=== PATIENT | male | born 1990 | race Hispanic/Latino ===

== ENCOUNTER 2019-04-24 12:26 | Emergency (ER) | payer OTHER ==
[~2019-04-24] VITALS: Ht 182.9 cm; Wt 98.0 kg
[2019-04-24 14:35] VITALS: BP 121/74
== END 2019-04-24 14:35 | disposition home or self-care (01) | DRG 605 ==
LOC: ED 12:26
DX: S60.022A Contusion of left index finger without damage to nail, initial encounter (principal); W22.8XXA Striking against or struck by other objects, initial encounter; Y93.89 Activity, other specified; Y92.89 Other specified places as the place of occurrence of the external cause; Y99.0 Civilian activity done for income or pay

== ENCOUNTER 2024-04-04 22:19 | Emergency (ER) | payer OTHER ==
[~2024-04-04] VITALS: Ht 182.9 cm; Wt 75.0 kg
[2024-04-04] MEDS ORDERED: traMADol HCL 50 MG/TAB PO ONE (22:55)
[2024-04-04] MEDS ORDERED: NAPROXEN 250 MG/TAB PO ONE (22:55)
[2024-04-04] MEDS ORDERED: AMOXICILLIN TRIHYDRATE 500 MG/CAP PO ONE (22:55)
[2024-04-04] MEDS ORDERED: TRAMADOL HCL50 MG PO (22:57)
[2024-04-04] MEDS ORDERED: MOTRIN800 MG PO (22:57)
[2024-04-04] MEDS ORDERED: AMOXICILLIN500 MG PO (22:57)
[2024-04-04 23:36] VITALS: BP 131/78
== END 2024-04-04 23:36 | disposition home or self-care (01) | DRG 159 ==
LOC: ED 22:19
DX: S02.5XXA Fracture of tooth (traumatic), initial encounter for closed fracture (principal); X58.XXXA Exposure to other specified factors, initial encounter